=== PATIENT | female | born 1975 | race Caucasian/White ===

== ENCOUNTER 2016-12-11 13:29 | Emergency (ER) | payer MEDICAID ==
[~2016-12-11] VITALS: Ht 162.6 cm; Wt 63.0 kg
[2016-12-11 13:31] VITALS: Ht 162.6 cm; Wt 63.0 kg
[2016-12-11 15:52] LABS: ADD SCAN DIFF NO
[2016-12-11 15:54] LABS: BASOPHIL # 0.1 10^3/ul (0.0-0.1); BASOPHILS % 0.6 % (0.0-2.0); EOSINOPHILS # 0.1 10^3/ul (0.0-0.5); EOSINOPHILS % 0.7 % (0.0-7.0); HEMATOCRIT 38.3 % (37.0-47.0); HEMOGLOBIN 13.2 g/dl (12.0-16.0); LYMPHOCYTES # 2.6 10^3/ul (0.8-2.9); LYMPHOCYTES % 23.1 % (15.0-51.0); MEAN CORPUSCULAR HGB CONC 34.5 g/dl (32.0-37.0); MEAN PLATELET VOLUME 10.9 fl (7.4-10.4); MONOCYTE # 0.9 10^3/ul (0.3-0.9); MONOCYTES % 8.2 % (0.0-11.0); NEUTROPHIL # 7.4 10^3/ul (1.6-7.5); NEUTROPHILS % 67.1 % (39.0-77.0); PLATELET COUNT 350 10^3/UL (140-415); RED BLOOD COUNT 4.12 10^6/ul (4.20-5.40); RED CELL DISTRIBUTION WIDTH 12.7 % (11.5-14.5); WHITE BLOOD COUNT 11.1 10^3/ul (4.8-10.8)
--- NOTE | 2016-12-11 16:21 | RADRPT ---
PROCEDURE: OB Ultrasound. CLINICAL INDICATION: Positive test. Vaginal bleeding. TECHNIQUE: Ultrasound of the pelvis was performed with transabdominal sonography in the axial and sagittal planes. COMPARISON: No prior study is available for comparison. FINDINGS: There is a single intrauterine gestational sac. pole and yolk sac are present. There is heart motion. heart rate is 182 beats per minute. [place]-rump length is 2.36 cm. Mean sac diameter is 5.59 cm. There are 2 small subchorionic hemorrhages. A small posterior fibroid measures 1.6 x 0.9 x 1.7 cm. Menstrual age by ultrasound dates is 9 weeks 0 days. This indicates an expected date of delivery of 07/16/2017. The ovaries are not visualized. There is no other pelvic mass or free fluid. IMPRESSION: 1. Single live intrauterine gestation of 9 weeks 0 days menstrual age by ultrasound dates. 2. Expected date of delivery is 07/16/2017. 3. Small subchorionic hemorrhages. 4. Ovaries not visualized. RPTAT: QQ .Jose Miguel Robbins MD, Date Time Electronically viewed and signed by .Jose Miguel Robbins MD, on 12/11/2016 16:21 .R/
--- NOTE | 2016-12-11 16:42 | ERD ---
ER Documentation Chief Complaint Date/Time DATE: 12/11/16 TIME: 16:36 Chief Complaint vag bleed , 7 weeks preg HPI Patient is a 41 year old female who presents to the emergency department with vaginal bleeding. Patient is a . Patient states that her bleeding started approximately 2 hours ago. Patient reports passage of blood clots. Patient denies using any pads. She does report some mild pelvic cramping. Patient denies any fevers however she does admit to some chills. Patient admits to nausea and vomiting which has been present throughout her . Patient states her last menstrual period was on October 14, 2016. ROS All systems reviewed and are negative except as per history of present illness. Medications Home Meds Active Scripts Cephalexin* (Keflex*) 500 Mg Capsule, 500 MG PO QID for 7 Days, CAP Prov:KATIE POP PA-C 12/11/16 PMhx/Soc Medical and Surgical Hx: pt denies Medical Hx, pt denies Surgical Hx Hx Alcohol Use: No Hx Substance Use: No Hx Tobacco Use: No Smoking Status: Never smoker Physical Exam Vitals Vital Signs Date Time Temp Pulse Resp B/P Pulse Ox O2 Delivery O2 Flow Rate FiO2 12/11/16 13:31 98.2 85 18 120/55 98 Physical Exam GENERAL: Well-developed, well-nourished female. Appears in no acute distress. HEAD: Normocephalic, atraumatic. EYES: Pupils are equally reactive bilaterally. EOMs grossly intact. No conjunctival erythema. ENT: Moist mucous membranes. No uvula deviation. No kissing tonsils. NECK: Supple. No meningismus. Normal range of motion of the neck. LUNG: Clear to auscultation bilaterally. No rhonchi, wheezing, rales or coarse breath sounds. HEART: Regular rate and rhythm. No murmurs, rubs or gallops. ABDOMEN: No scars, ecchymosis or rashes noted. Soft and nondistended. Tender to palpation of the suprapubic region. Positive bowel sounds in all four quadrants. No rebound tenderness, no guarding. (-) McBurney's point tenderness. No CVA tenderness. BACK: No midline tenderness. EXTREMITIES: Equal pulses bilaterally. No peripheral clubbing, cyanosis or edema. No unilateral leg swelling. NEUROLOGIC: Alert and oriented. Moving all four extremities without any difficulty. Normal speech. Steady gait. SKIN: Normal color. Warm and dry. No rashes or lesions. Result Diagram: 12/11/16 1535 Results 24 hrs Laboratory Tests Test 12/11/16 15:35 12/11/16 17:03 White Blood Count 11.110^3/ul Red Blood Count 4.1210^6/ul Hemoglobin 13.2g/dl Hematocrit 38.3% Mean Corpuscular Volume 93.0fl Mean Corpuscular Hemoglobin 32.0pg Mean Corpuscular Hemoglobin Concent 34.5g/dl Red Cell Distribution Width 12.7% Platelet Count 96239^3/UL Mean Platelet Volume 10.9fl Neutrophils % 67.1% Lymphocytes % 23.1% Monocytes % 8.2% Eosinophils % 0.7% Basophils % 0.6% Nucleated Red Blood Cells % 0.0/100WBC Neutrophils # 7.410^3/ul Lymphocytes # 2.610^3/ul Monocytes # 0.910^3/ul Eosinophils # 0.110^3/ul Basophils # 0.110^3/ul Nucleated Red Blood Cells # 0.010^3/ul Beta HCG, Quantitative 780137.0mIU/ml Bedside Urine pH (LAB) 7.0 Bedside Urine Protein (LAB) Negative Bedside Urine Glucose (UA) Negative Bedside Urine Ketones (LAB) Negative Bedside Urine Blood 1+ Bedside Urine Nitrite (LAB) Negative Bedside Urine Leukocyte Esterase (L Trace Procedures/MDM ED COURSE: The patient was stable throughout ED course. I kept the patient and/or family informed of laboratory and diagnostic imaging results throughout the ED course. DIAGNOSTIC IMAGING: Read by radiologist. DIAGNOSTIC IMAGING REPORT Patient: ROSSY HUBBARD : 1975 Age: 41 Sex: F MR #: [id number] [facility] [id number] DOS: 12/11/16 1530 Ordering MD: KATIE POP PA-C Location: [facility] Room/Bed: PROCEDURE: OB Ultrasound. CLINICAL INDICATION: Positive test. Vaginal bleeding. TECHNIQUE: Ultrasound of the pelvis was performed with transabdominal sonography in the axial and sagittal planes. COMPARISON: No prior study is available for comparison. FINDINGS: There is a single intrauterine gestational sac. pole and yolk sac are present. There is heart motion. heart rate is 182 beats per minute. [place]-rump length is 2.36 cm. Mean sac diameter is 5.59 cm. There are 2 small subchorionic hemorrhages. A small posterior fibroid measures 1.6 x 0.9 x 1.7 cm. Menstrual age by ultrasound dates is 9 weeks 0 days. This indicates an expected date of delivery of 07/16/2017. The ovaries are not visualized. There is no other pelvic mass or free fluid. IMPRESSION: 1. Single live intrauterine gestation of 9 weeks 0 days menstrual age by ultrasound dates. 2. Expected date of delivery is 07/16/2017. 3. Small subchorionic hemorrhages. 4. Ovaries not visualized. RPTAT: QQ .Jose Miguel Robbins MD, Date Time Electronically viewed and signed by .Jose Miguel Robbins MD, MD on 12/11/2016 16:21 .R/ CC: KATIE POP PA-C MEDICAL DECISION MAKING: This is a 41-year-old female, , presents to the emergency department with pelvic cramping and vaginal spotting which started 2 hours ago. Vital signs were reviewed. Patient was afebrile. Patient was hemodynamically stable. Urine test was positive. Quantitative b-HCG was 771925. Given that Rh factor was O+, thus Rhogam was not given. CBC showed slight WBC count but no signs of severe anemia. Pelvic US showed Single live intrauterine gestation of 9 weeks 0 days menstrual age by ultrasound dates. Expected date of delivery is 07/16/2017. Small subchorionic hemorrhages. Ovaries not visualized. Urine dip showed trace leukocyte esterase. Given these findings, the patient's presentation is most consistent with single live IUP, subchorionic hematoma and UTI. Unable to rule out threatened at this time. I have a much lower clinical concern for ectopic , ruptured ectopic , molar , incomplete , complete , missed , placental abruption, placental previa, vasa previa, uterine rupture, anembyronic , demise. Low suspicion for pyelonephritis. PRESCRIPTIONS: Keflex DISCHARGE: At this time, patient is stable for discharge and outpatient management. I had a conversation at length with the patient about the concerns of vaginal bleeding during the 1st trimester of . Patient and/or family understands that her vaginal bleeding can be a normal finding or a sign of miscarriage. I have instructed the patient to follow-up with her OBGYN in 1-2 days for further monitoring including a repeat b-HCG level. I have instructed the patient to promptly return to the ER at any time for any new or worsening symptoms including increased pain, nausea, vomiting, continued bleeding, weakness, syncope or fever. The patient and/or family expressed understanding of and agreement with this plan. All questions were answered. Home care instructions were provided. Departure Diagnosis: Primary Impression: Vaginal bleeding in patient at less than 20 weeks ges... Additional Impressions: Subchorionic hematoma Fetus number: single or unspecified fetus Trimester: unspecified trimester Qualified Code: O41.8X90 - Subchorionic hematoma, unspecified trimester, not applicable or unspecified fetus UTI (urinary tract infection) Urinary tract infection type: site unspecified Hematuria presence: without hematuria Qualified Code: N39.0 - Urinary tract infection without hematuria, site unspecified Condition: Stable Patient Instructions: Bleeding During Early Referrals: OFFICE [place] [id number] [facility] [address] [place], [place] [phone] OFFICE FAX DR.ABUSLEME STEPHENIE [address] [place], [place] [phone] [facility] [address] [place], [place] [phone] [facility] [address] [facility] [address] [address] [address] [place] [employer] [phone] [facility] [address] [place] [address] [address] [facility] [id number] - EMILY MANDUJANO [address], [facility] [address] [address] LINDA, LAURA [address] [facility] [address], [facility] [address] [address] [address] [place] [address] Additional Instructions: Call your primary care doctor/OBGYN TOMORROW for an appointment during the next 1-2 days.See the doctor sooner or return here if your condition worsens before your appointment time. KATIE POP PA-C Dec 11, 2016 16:42
[2016-12-11 17:04] LABS: URINE BLOOD (Dip) POC 1+ (NEGATIVE)
[2016-12-11] MEDS ORDERED: CEPH-443 PO (17:22)
== END 2016-12-11 17:35 | disposition home or self-care (01) ==
LOC: FTE 13:29
DX: O20.9 Hemorrhage in early pregnancy, unspecified (principal); O23.41 Unspecified infection of urinary tract in pregnancy, first trimester; R10.2 Pelvic and perineal pain; O41.8X10 Other specified disorders of amniotic fluid and membranes, first trimester, not applicable or unspecified; Z3A.09 9 weeks gestation of pregnancy
CPT/HCPCS: 76801; 81003; 84702; 85025; 86900; 86901

== ENCOUNTER 2017-05-02 11:59 | Outpatient (CLI) | payer MEDICAID ==
[~2017-05-02] VITALS: Ht 157.5 cm; Wt 68.5 kg
[~2017-05-02 11:59] MED LIST: CEPH-443 PO
[2017-05-02 12:43] VITALS: BP 113/60; PULSE 80; RESP 20; Ht 157.5 cm; Wt 68.5 kg
--- NOTE | 2017-05-02 13:46 | RADRPT ---
PROCEDURE: US OB biophysical profile. Ultrasound cervix CLINICAL INDICATION: decreased movements, labor TECHNIQUE: Multiple sonographic images of the pelvis were obtained. In addition, transvaginal imag es of the cervix were obtained. The images were reviewed on a PACS workstation. COMPARISON: No prior studies are available for comparison. FINDINGS: There is a single viable intrauterine gestation. Cardiac activity is present with 132 beats per min kiesha. There is a vertex presentation. The cervix is closed and measures 3.8 cm in length. The placenta is posterior. There is no evidence of placental abruption. There is a normal amount of amniotic fluid with an SARA = 19.1 cm. Biophysical profile: movement 2/2 tone 2/2. breathing 2/2 SARA 2/2 Total 04/17 RPTAT: AA . IMPRESSION: Normal biophysical profile. . .Joshua Lynn MD, Date Time Electronically viewed and signed by .Joshua Lynn MD, on 05/02/2017 13:45 .S/
--- NOTE | 2017-05-02 14:05 | RADRPT ---
PROCEDURE: Obstetrical ultrasound CLINICAL INDICATION: Labor TECHNIQUE: Multiple sonographic images of the pelvis were obtained. The images were reviewed on a PACS workstation. COMPARISON: None FINDINGS: The cervix is not well visualized. There is a single viable intrauterine gestation. Cardiac activity is present with 128 beats per minute. There is a vertex presentation. The placenta is posterior. There is no evidence for an abruption or placenta previa. There is a subjectively normal amount of amniotic fluid. Measurements were made in order to determine age. The results are as follows (cm): BPD =7.13 HC =26.52 AC =24.38 FL =5.40 Estimated gestational age by ultrasound of approximately 28 weeks, 5 days. The estimated date of delivery by ultrasound is 07/20/2017. Estimated gestational age by LMP of approximately 28 weeks, 3 days. The estimated date of delivery by LMP is 07/22/2017. EFW = 1261 grams (45th percentile) IMPRESSION: Single viable intrauterine gestation of approximately 28 weeks, 5 days . The estimated date of delivery is 07/20/2017 . Dating by ultrasound is within 2 days of dating by LMP. Cephalic presentation. Estimated weight is in the 45th percentile. RPTAT: EE Physician Patrick Date Time Electronically viewed and signed by Physician Patrick on 05/02/2017 14:05 SARIAH
[2017-05-02 14:20] LABS: ADD UMIC NO; UR ASCORBIC ACID NEGATIVE (NEGATIVE); UR BILIRUBIN (Dip) NEGATIVE (NEGATIVE); UR BLOOD (Dip) NEGATIVE (NEGATIVE); UR CLARITY CLEAR (CLEAR); UR COLOR STRAW (YELLOW); UR GLUCOSE (Dip) NEGATIVE (NEGATIVE); UR KETONES (Dip) NEGATIVE (NEGATIVE); UR LEUKOCYTE ESTERASE (Dip) NEGATIVE Leu/ul (NEGATIVE); UR NITRITE (Dip) NEGATIVE (NEGATIVE); UR SPECIFIC GRAVITY (Dip) 1.004 (1.003-1.030); UR TOTAL PROTEIN (Dip) NEGATIVE (NEGATIVE); UR UROBILINOGEN (Dip) NEGATIVE (NEGATIVE)
[2017-05-02] MEDS ORDERED: LACTATED RINGER'S 1,000 ML IV SCH (15:02)
[2017-05-02] MEDS ORDERED: TERBUTALINE 1 MG/ML INJ SC ONE (17:30)
[2017-05-03] MEDS ORDERED: IOHEXOL 300MG/ML 150 ML BTL ONE (02:43)
[2017-05-03] MEDS ORDERED: SOD CHLORIDE 0.9% 100 ML ONE (02:43)
--- NOTE | 2017-05-03 07:40 | TRIAGE ---
OB Triage Datetime Report Generated by CPN: 05/03/2017 07:39 Datetime: 05/02/2017 20:00 Stage of : OB Triage Heart Rate FHR Baseline Rate: 140 Monitor Mode: External US FHR Baseline Changes: No Baseline Change Variability: Moderate 6-25 bpm Accelerations: 15X15 Decelerations: None Category: Category I Pain Assessment Pain Scale: 0 Pain Presence: None/Denies Pain Type: N/A Datetime: 05/02/2017 19:25 Stage of : OB Triage Monitor Mode: External Quality: Mild Pattern: Normal: <= 5 Contractions in 10 Minutes Resting Tone [place]: Relaxed Contraction Comments: PT DENIES UCS OR DISCOMFORT Heart Rate FHR Baseline Rate: 140 Monitor Mode: External US FHR Baseline Changes: No Baseline Change Variability: Moderate 6-25 bpm Accelerations: 15X15 Decelerations: None Category: Category I Vaginal Exam Dilatation (cms): 0.0 Effacement (%): 0 Station: -4 Exam By: SHAGGY RN Vaginal Bleeding: None Cervix, Consistency: Firm Cervix, Position: Posterior Datetime: 05/02/2017 19:00 Stage of : OB Triage Maternal Assessment Level of Consciousness: Fully Conscious Labor Evaluation Frequency: NONE Monitor Mode: External Resting Tone [place]: Relaxed Heart Rate FHR Baseline Rate: 135 Monitor Mode: External US Variability: Moderate 6-25 bpm Accelerations: 15X15 Decelerations: None Pain Assessment Pain Scale: 0 Pain Goal: 3 Membrane Status: Intact Vaginal Bleeding: None Datetime: 05/02/2017 18:00 Stage of : OB Triage Maternal Assessment Level of Consciousness: Fully Conscious Labor Evaluation Frequency: 2-20 Monitor Mode: External Duration (sec)2399: 60-90 Quality: Mild Resting Tone [place]: Relaxed Heart Rate FHR Baseline Rate: 135 Monitor Mode: External US Variability: Moderate 6-25 bpm Accelerations: 15X15 Decelerations: None Category: Category I Pain Assessment Pain Scale: 0 Pain Goal: 3 Membrane Status: Intact Vaginal Bleeding: None Datetime: 05/02/2017 17:00 Stage of : OB Triage Maternal Assessment Level of Consciousness: Fully Conscious Labor Evaluation Frequency: 1-6 Monitor Mode: External Duration (sec)2399: 50-100 Quality: Mild Resting Tone [place]: Relaxed Heart Rate FHR Baseline Rate: 135 Monitor Mode: External US Variability: Moderate 6-25 bpm Accelerations: 15X15 Decelerations: None Category: Category I Pain Assessment Pain Scale: 0 Pain Goal: 3 Membrane Status: Intact Vaginal Bleeding: None Datetime: 05/02/2017 16:00 Stage of : OB Triage Maternal Assessment Level of Consciousness: Fully Conscious Labor Evaluation Frequency: NONE Monitor Mode: External Resting Tone [place]: Relaxed Heart Rate FHR Baseline Rate: 135 Monitor Mode: External US Variability: Moderate 6-25 bpm Accelerations: 15X15 Decelerations: None Pain Assessment Pain Scale: 0 Pain Goal: 3 Membrane Status: Intact Vaginal Bleeding: None Datetime: 05/02/2017 15:00 Stage of : OB Triage Maternal Assessment Level of Consciousness: Fully Conscious Labor Evaluation Frequency: 2UC/HR Monitor Mode: External Duration (sec)2399: 70 Quality: Mild Resting Tone [place]: Relaxed Heart Rate FHR Baseline Rate: 135 Monitor Mode: External US Variability: Moderate 6-25 bpm Accelerations: 15X15 Decelerations: None Category: Category I Pain Assessment Pain Scale: 0 Pain Goal: 3 Membrane Status: Intact Vaginal Bleeding: None Datetime: 05/02/2017 14:04 Labor Evaluation Frequency: UTERINE IRRITABILITY Monitor Mode: External Pattern: Normal: <= 5 Contractions in 10 Minutes Resting Tone [place]: Relaxed Heart Rate FHR Baseline Rate: 135 Monitor Mode: External US Variability: Moderate 6-25 bpm Accelerations: 15X15 Decelerations: None Category: Category I Datetime: 05/02/2017 13:03 Stage of : OB Triage Assessment Type: Triage Maternal Assessment Level of Consciousness: Fully Conscious DTR's/Clonus: DTRs 2+; No Clonus Headache: Denies Blurred Vision: No Respiratory Effort: Unlabored; Regular Rhythm; Equal Expansion Breath Sounds, Left: Clear and Equal Breath Sounds, Right: Clear and Equal Nausea/Vomiting: Denies RUQ Epigastric Pain: Denies Lower Extremities Edema: None Degree: None Upper Extremities Edema: None Degree: None Facial Edema: None Temperature Route: Axillary Fall Risk Assessment History of Falling: (0) No Secondary Diagnosis: (0) No Ambulatory Aid: (0) Bedrest/Nurse Assist IV Therapy: (0) No Gait: (0) Normal/Bedrest/Immobile Mental Status: (0) Oriented to Own Ability Fall Score: 0 Fall Risk Score Definition: No Risk: No action required Pain Assessment Pain Scale: 7 Pain Presence: Intermittent Pain Type: Contraction Pain Location: Abdomen Pain Goal: 2 Pain Relief Measures: Comfort Measures Datetime: 05/02/2017 13:02 Assessment Type: Triage Maternal Assessment Level of Consciousness: Fully Conscious DTR's/Clonus: DTRs 2+; No Clonus Headache: Denies Blurred Vision: No Respiratory Effort: Unlabored; Regular Rhythm; Equal Expansion Breath Sounds, Left: Clear and Equal Breath Sounds, Right: Clear and Equal Nausea/Vomiting: Denies RUQ Epigastric Pain: Denies Lower Extremities Edema: None Degree: None Upper Extremities Edema: None Degree: None Facial Edema: None Fall Risk Assessment History of Falling: (0) No Secondary Diagnosis: (0) No Ambulatory Aid: (0) Bedrest/Nurse Assist IV Therapy: (0) No Gait: (0) Normal/Bedrest/Immobile Mental Status: (0) Oriented to Own Ability Fall Score: 0 Fall Risk Score Definition: No Risk: No action required Datetime: 05/02/2017 12:33 Time of Arrival: 05/02/2017 11:55 EGA: 28.3 Arrived By: Ambulatory Arrived From: Home Chief Complaint: VAGINAL PAIN AND LEAKING Movement: Present Contractions: Denies/Absent Rupture of Membranes: Unsure Vaginal Bleeding: None Vaginal Discharge: Denies Recent Sexual Intercouse: Denies Patient Complaints: Back Pain Time Provider Notified: 05/02/2017 12:34 Provider Notified: JOEDAPJ Initial Plan: nst and call md Datetime: 05/02/2017 12:32 Time of Arrival: 05/02/2017 11:29 Arrived By: Ambulatory Arrived From: Home Chief Complaint: VAGINAL PAIN 03/19/ LEAKING
--- NOTE | 2017-07-25 12:17 | PN ---
Triage Information Date/Time Reason for visit: Abd/pelvic pain (LOF) Weeks of Gestation 28 weeks and 3 days /Para Diabetes: none Hypertention: none Additional information 42 years old Female with IUP at 28 weeks and [address] and care with Dr[address] Hernandes presented with complaint of low back pain and LOF. Denies any vaginal bleeding. DFM or any other complaint Objective Heart Rate: 130's Contractions: 6-10 Minutes Apart Exam GA:A&O, NAD Abdomen. soft, gravid., non tender FH consistent with date NST: Cat 1 Occasional contractins,. resolved with hydration SSE: Negative pooling, Negative [place]. Negative ROM. Results/Medications Imaging Results PROCEDURE: US OB biophysical profile. Ultrasound cervix CLINICAL INDICATION: decreased movements, labor TECHNIQUE: Multiple sonographic images of the pelvis were obtained. In addition, transvaginal images of the cervix were obtained. The images were reviewed on a PACS workstation. COMPARISON: No prior studies are available for comparison. FINDINGS: There is a single viable intrauterine gestation. Cardiac activity is present with 132 beats per minute. There is a vertex presentation. The cervix is closed and measures 3.8 cm in length. The placenta is posterior. There is no evidence of placental abruption. There is a normal amount of amniotic fluid with an SARA = 19.1 cm. Biophysical profile: movement 2/2 tone 2/2. breathing 2/2 SARA 2/2 Total 8/8 RPTAT: AA . IMPRESSION: Normal biophysical profile. . Disposition: Discharge Assessment/Plan IUP at 28 weeks and 3 days No Evidence of PPROM or PTL ROM test negative AF normal OCcasional contractions resolved with IV hdration DC home Strict PTL precaution and FKC discussed with the patient follow up in 24-48 hours with her OB and RT Crystal PRN any other concerns' SHELLEY TERRY MD Jul 25, 2017 12:17
== END 2017-05-02 20:24 | disposition home or self-care (01) ==
LOC: L-D 11:59 → OBT 11:59
PROVIDERS: ATTEND Obstetrics & Gynecology
DX: O42.912 Preterm premature rupture of membranes, unspecified as to length of time between rupture and onset of labor, second trimester (principal); O09.512 Supervision of elderly primigravida, second trimester; Z3A.28 28 weeks gestation of pregnancy
CPT/HCPCS: 76815; 76817; 76818; 81003; 84112; J3105; J7120; Z7500; G0463; Q9967

== ENCOUNTER 2017-05-24 21:38 | Outpatient (CLI) | payer MEDICAID ==
--- NOTE | 2017-05-03 04:59 | PN ---
Triage Information Date/Time May 02, 2017 Reason for visit: r/o SROM Weeks of Gestation 28 weeks and 3 days /Para 2 para Diabetes: none Hypertention: none Additional information 41-year-old with IUP at 28 weeks and 3 days with complaint of vaginal pain and leaking of fluid. Denies any vaginal bleeding or decreased movement or uterine contractions. Objective Heart Rate: 130's Heart Rate Comments Category 1 tracing Exam GA: Alert and oriented 3 does not appear to be in any acute distress. Abdomen: Soft, gravid, fundal height consistent with gestational age. No abdominal tenderness, no suprapubic tenderness, no CVA tenderness. Sterile speculum examination: Negative pooling/R OM test negative SARA normal BPP: 8/8 Cervical length: 3.8 cm. Estimated weight 45% Placenta in ultrasound with no evidence of abruption or previa Results/Medications Imaging Results PROCEDURE: Obstetrical ultrasound CLINICAL INDICATION: Labor TECHNIQUE: Multiple sonographic images of the pelvis were obtained. The images were reviewed on a PACS workstation. COMPARISON: None FINDINGS: The cervix is not well visualized. There is a single viable intrauterine gestation. Cardiac activity is present with 128 beats per minute. There is a vertex presentation. The placenta is posterior. There is no evidence for an abruption or placenta previa. There is a subjectively normal amount of amniotic fluid. Measurements were made in order to determine age. The results are as follows (cm): BPD = 7.13 HC = 26.52 AC = 24.38 FL = 5.40 Estimated gestational age by ultrasound of approximately 28 weeks, 5 days. The estimated date of delivery by ultrasound is 07/20/2017. Estimated gestational age by LMP of approximately 28 weeks, 3 days. The estimated date of delivery by LMP is 07/22/2017. EFW = 1261 grams (45th percentile) IMPRESSION: Single viable intrauterine gestation of approximately 28 weeks, 5 days . The estimated date of delivery is 07/20/2017 . Dating by ultrasound is within 2 days of dating by LMP. Cephalic presentation. Estimated weight is in the 45th percentile. Disposition: Discharge Assessment/Plan IUP at 28 weeks and 3 days No evidence of PPROM No evidence of labor DC home Strict labor precaution and kick count and follow-up within 24-48 hours with primary OB recommended. SHELLEY TERRY MD May 03, 2017 04:59
[~2017-05-24] VITALS: Ht 157.5 cm; Wt 71.7 kg
[2017-05-24 22:14] VITALS: BP 116/64; PULSE 83; RESP 18
[2017-05-24] MEDS ORDERED: PRENAT PO (22:47)
[2017-05-24 23:06] LABS: ADD UMIC NO; UR ASCORBIC ACID NEGATIVE (NEGATIVE); UR BILIRUBIN (Dip) NEGATIVE (NEGATIVE); UR BLOOD (Dip) NEGATIVE (NEGATIVE); UR CLARITY CLEAR (CLEAR); UR COLOR COLORLESS (YELLOW); UR GLUCOSE (Dip) NEGATIVE (NEGATIVE); UR KETONES (Dip) NEGATIVE (NEGATIVE); UR LEUKOCYTE ESTERASE (Dip) NEGATIVE Leu/ul (NEGATIVE); UR NITRITE (Dip) NEGATIVE (NEGATIVE); UR SPECIFIC GRAVITY (Dip) 1.001 (1.003-1.030); UR TOTAL PROTEIN (Dip) NEGATIVE (NEGATIVE); UR UROBILINOGEN (Dip) NEGATIVE (NEGATIVE)
[2017-05-24] MEDS ORDERED: BETAMET NA PHOS/AC(6 MG/ML) 5ML INJ ONE (23:33)
--- NOTE | 2017-05-24 23:57 | RADRPT ---
PROCEDURE: OB ultrasound for biophysical profile CLINICAL INDICATION: labor. TECHNIQUE: Multiple sonographic images of the pelvis were obtained. Transabdominal view of the gr avid uterus are available for review. The images were reviewed on a PACS workstation. COMPARISON: 05/02/2017 FINDINGS: breathing movement = 2/2 tone = 2/2 motion = 2/2 Amniotic fluid = 2/2 SARA = 19.9 cm Single live intrauterine in cephalic presentation with cardiac activity (139 bpm). Posterior placenta, grade 1. The cervix is closed measuring 3.9 cm. There is 8 mm Nabothian cyst in the cervix IMPRESSION: 1. Single viable intrauterine gestation. 2. Biophysical profile = 04/17. 3. SARA = 19.9 cm. RPTAT: HTAR .Vineet Hall MD, MD Date Time Electronically viewed and signed by .Vineet Hall MD, MD on 05/24/2017 23:57 .R/
--- NOTE | 2017-05-24 23:58 | RADRPT ---
PROCEDURE: US OB. CLINICAL INDICATION: labor. TECHNIQUE: Multiple sonographic images of the pelvis were obtained. Transabdominal imaging only w as performed. The images were reviewed on a PACS workstation. COMPARISON: No prior studies are available for comparison. FINDINGS: There is a single viable intrauterine gestation. Cardiac activity is present with 139 beats per minute. There is a cephalic presentation. Measurements were made in order to determine age. The results are as follows: BPD = 8.20 cm HC = 29.72 cm AC = 29.46 cm FL = 6.04 cm Estimated gestational age of approximately 32 weeks 5 days. The estimated date of delivery is 07/14/2017. The EFW = 2044 g. EFW percentile: 50% The placenta is posterior, grade 1. There is no evidence for an abruption or placenta previa. IMPRESSION: 1. Single viable intrauterine gestation of approximately 32 weeks 5 days, based on ultrasound measu rements. The estimated date of delivery is 07/14/2017. 2. EFW percentile: 50%. RPTAT: HTAR .Vineet Hall MD, Date Time Electronically viewed and signed by .Vineet Hall MD, MD on 05/24/2017 23:58 .R/
[2017-05-25 00:47] LABS: BASOPHIL # 0.1 10^3/ul (0.0-0.1); BASOPHILS % 0.5 % (0.0-2.0); EOSINOPHILS # 0.2 10^3/ul (0.0-0.5); EOSINOPHILS % 1.5 % (0.0-7.0); HEMATOCRIT 34.3 % (37.0-47.0); LYMPHOCYTES # 1.9 10^3/ul (0.8-2.9); LYMPHOCYTES % 16.8 % (15.0-51.0); MEAN CORPUSCULAR HEMOGLOBIN 34.6 pg (29.0-33.0); MEAN CORPUSCULAR VOLUME 98.8 fl (82.0-101.0); MEAN PLATELET VOLUME 11.2 fl (7.4-10.4); MONOCYTE # 1.2 10^3/ul (0.3-0.9); MONOCYTES % 10.7 % (0.0-11.0); NEUTROPHIL # 7.6 10^3/ul (1.6-7.5); NEUTROPHILS % 68.6 % (39.0-77.0); PLATELET COUNT 265 10^3/UL (140-415); RED BLOOD COUNT 3.47 10^6/ul (4.20-5.40); RED CELL DISTRIBUTION WIDTH 12.7 % (11.5-14.5); WHITE BLOOD COUNT 11.1 10^3/ul (4.8-10.8)
--- NOTE | 2017-05-25 03:28 | PN ---
Triage Information Date/Time 05/25/17 0240 Reason for visit: DFM Weeks of Gestation 31w4d /Para Diabetes: none Diabetes management: insulin controlled Hypertention: none Objective Vital Signs Date Time Temp Pulse Resp B/P Pulse Ox O2 Delivery O2 Flow Rate FiO2 05/24/17 22:14 98.1 83 18 116/64 Room Air Heart Rate: 130's Contractions: None Results/Medications Result Diagram: 05/25/17 0028 Results 24 hrs Laboratory Tests Test 05/24/17 21:45 05/25/17 00:28 Urine Color COLORLESS Urine Clarity CLEAR Urine pH 6.0 Urine Specific [place] 1.001 L Urine Ketones NEGATIVE Urine Nitrite NEGATIVE Urine Bilirubin NEGATIVE Urine Urobilinogen NEGATIVE Urine Leukocyte Esterase NEGATIVE Urine Hemoglobin NEGATIVE Urine Glucose NEGATIVE Urine Total Protein NEGATIVE White Blood Count 11.1 H Red Blood Count 3.47 L Hemoglobin 12.0 Hematocrit 34.3 L Mean Corpuscular Volume 98.8 Mean Corpuscular Hemoglobin 34.6 H Mean Corpuscular Hemoglobin Concent 35.0 Red Cell Distribution Width 12.7 Platelet Count 265 # Mean Platelet Volume 11.2 H Neutrophils % 68.6 Lymphocytes % 16.8 Monocytes % 10.7 Eosinophils % 1.5 Basophils % 0.5 Nucleated Red Blood Cells % 0.0 Neutrophils # 7.6 H Lymphocytes # 1.9 Monocytes # 1.2 H Eosinophils # 0.2 Basophils # 0.1 Nucleated Red Blood Cells # 0.0 Imaging Results CVL 3.9 BPP 8/8 SARA 19.9 EFW 2044gm Disposition: Discharge Assessment/Plan A IUP 31w4d DFM P discharge home f/u at [facility] RT NAVDEEP Jackson MD May 25, 2017 03:28
--- NOTE | 2017-05-25 05:27 | TRIAGE ---
OB Triage Datetime Report Generated by CPN: 05/25/2017 05:27 Datetime: 05/24/2017 23:14 Monitor Mode: External US Datetime: 05/24/2017 22:10 Stage of : OB Triage Monitor Mode: External Quality: Mild Pattern: Normal: <= 5 Contractions in 10 Minutes Resting Tone [place]: Relaxed Heart Rate FHR Baseline Rate: 140 Monitor Mode: External US FHR Baseline Changes: No Baseline Change Variability: Moderate 6-25 bpm Accelerations: 15X15 Decelerations: None Category: Category I Datetime: 05/24/2017 22:00 Time of Arrival: 05/24/2017 21:32 EGA: 31.4 Arrived By: Wheelchair Arrived From: Home Chief Complaint: c/o DFM since am and occas mild cramping Movement: Decreased Contractions: Occasional Rupture of Membranes: Denies Vaginal Bleeding: None Vaginal Discharge: Denies Recent Sexual Intercouse: Denies Abdominal Trauma: Not Applicable Patient Complaints: Cramping Time Provider Notified: 05/24/2017 22:10 Provider Notified: Dr Hernandes Initial Plan: EFM,CBC,UA,CVL,EFW,BPP Datetime: 05/24/2017 21:46 Stage of : OB Triage Maternal Assessment Level of Consciousness: Fully Conscious Headache: Denies Blurred Vision: No Respiratory Effort: Unlabored Nausea/Vomiting: Denies RUQ Epigastric Pain: Denies Facial Edema: None Labor Evaluation Frequency: placed Monitor Mode: External Resting Tone [place]: Relaxed Heart Rate FHR Baseline Rate: 135 Monitor Mode: External US Pain Assessment Pain Scale: 2 Pain Presence: Intermittent Pain Type: Cramping Pain Location: Abdomen Datetime: 05/02/2017 13:03 Fall Risk Assessment Fall Score: 0 Fall Risk Score Definition: No Risk: No action required Datetime: 05/02/2017 13:02 Fall Risk Assessment Fall Score: 0 Fall Risk Score Definition: No Risk: No action required Datetime: 05/02/2017 12:33 EGA: 28.3
== END 2017-05-25 01:20 | disposition home or self-care (01) ==
LOC: OBT 21:38 → L-D 21:39 → OBT 05-25 01:20
PROVIDERS: ATTEND Obstetrics & Gynecology
DX: O36.8130 Decreased fetal movements, third trimester, not applicable or unspecified (principal); O24.414 Gestational diabetes mellitus in pregnancy, insulin controlled; Z3A.31 31 weeks gestation of pregnancy
CPT/HCPCS: 36415; 76815; 76817; 76818; 81003; 85025; J0702; Z7500; G0463

== ENCOUNTER 2017-07-13 16:58 | Inpatient (IN) | payer MEDICAID ==
[~2017-07-13] VITALS: Ht 152.4 cm; Wt 76.0 kg
[~2017-07-13 16:58] MED LIST changes: -CEPH-443 PO; +PRENAT PO
[2017-07-13] MEDS ORDERED: LACTATED RINGER'S 1,000 ML IV SCH (18:27)
[2017-07-13] MEDS ORDERED: HYDROCODONE/APAP (5/325) TAB PO PRN (18:30)
[2017-07-13] MEDS ORDERED: BUTORPHANOL 2 MG INJ IV PRN ×2 (18:30)
[2017-07-13] MEDS ORDERED: OXYTOCIN 30 UNITS/LR 500 ML IV PRN ×2 (18:30→20:30)
[2017-07-13] MEDS ORDERED: LIDOCAINE 1% (MPF) 30 ML INJ INJ PRN (18:30)
[2017-07-13] MEDS ORDERED: IBUPROFEN 600 MG TAB PO PRN (18:30)
[2017-07-13] MEDS ORDERED: LACTATED RINGER'S 1,000 ML IV PRN (18:30)
[2017-07-13] MEDS ORDERED: METHYLERGONOVINE 0.2 MG INJ IM PRN ×2 (18:30→20:30)
[2017-07-13] MEDS ORDERED: OXYTOCIN 30 UNITS/LR 500 ML IV SCH ×2 (18:30)
[2017-07-13] MEDS ORDERED: MISOPROSTOL 200 MCG TAB PR PRN ×2 (18:30→20:30)
[2017-07-13] MEDS ORDERED: CARBOPROST 250 MCG INJ IM PRN ×2 (18:30→20:30)
[2017-07-13] MEDS ORDERED: AMPICILLIN 2 GM/NS (PMX) 100 ML IV ONE (18:30)
[2017-07-13 19:04] VITALS: Ht 152.4 cm; Wt 76.0 kg
[2017-07-13 19:05] VITALS: BP 121/68; PULSE 71; RESP 20
[2017-07-13] MEDS ORDERED: LACTATED RINGER'S 1,000 ML IV* SCH (20:08)
--- NOTE | 2017-07-13 20:08 | LDN ---
Date/Time of Note Date/Time of Note DATE: 07/13/17 TIME: 20:07 Delivery Summary Weeks of Gestation 38 Placenta Delivered: Spontaneously Meconium: none Laceration repair: 1st degree vaginal laceration repair with 2-0 chromic Estimated blood loss: 150 Sponge & Needle done & correct: Yes All needle counts correct: Yes Any foreign bodies felt in the: No Problems: Delivery Information Sex Sex: male Apgars 1 Minute: 8 5 Minute: 9 Suctioning Nose & mouth suctioned at barrera: No Delee suction performed: No Umbilical Cord Umbilical cord with: 3 Vessels Cord presentations: no nuchal cord Cord Blood was obtained: Yes KAREN SMITH MD Jul 13, 2017 20:08
[2017-07-13] MEDS ORDERED: DIBUCAINE 1% 30 GM OINT PR PRN (20:30)
[2017-07-13] MEDS ORDERED: WITCH HAZEL/GLYCERIN PAD PR PRN (20:30)
[2017-07-13] MEDS ORDERED: LANOLIN 7 GM TUBE TOP PRN (20:30)
[2017-07-13] MEDS ORDERED: ONDANSETRON 4 MG INJ IV PRN (20:30)
[2017-07-13] MEDS ORDERED: OXYCODONE/ASPIRIN (4.88/325) TAB PO PRN ×2 (20:30)
[2017-07-13] MEDS ORDERED: SENNA/DOCUSATE NA (8.6MG/50MG) TAB PO PRN (20:30)
[2017-07-13] MEDS ORDERED: BENZOCAINE 20% 56 ML SPRAY TOP PRN (20:30)
--- NOTE | 2017-07-13 20:30 | RADRPT ---
PROCEDURE: Obstetrical ultrasound. CLINICAL INDICATION: , evaluation. Pelvic pain. TECHNIQUE: Transabdominal sonographic images of the uterus obtained after first trimester , greater than 14 weeks gestation. Single intrauterine gestation present. COMPARISON: 05/24/2017 FINDINGS: Single intrauterine gestation. There is a cephalic presentation. Measurements were made in order to determine age. The results are as follows: BPD = 34 weeks 6 day(s) HC = 35 weeks 6 day(s) AC = 38 weeks 3 day(s) FL = 36 weeks 6 day(s) SARA = not measured. Heart rate = 146 beats per minute The placenta is fundal - right. There is no evidence for an abruption or placenta previa. Ovaries are not visualized. IMPRESSION: Single intrauterine gestation of approximately 36 weeks 4 days by ultrasound criteria. [place] estimated weight = 3175 g; 31 percentile for gestational age of 38 weeks 5 days. RPTAT: AADD .Drake Cordero MD, MD Date Time Electronically viewed and signed by .Drake Cordero MD, on 07/13/2017 20:30 .B/
[2017-07-13] MEDS: SENNA/DOCUSATE NA (8.6MG/50MG) TAB PO SCH (21:00)
[2017-07-13] MEDS ORDERED: AMPICILLIN 1 GM/NS (PMX) 50 ML IV SCH (22:30)
[2017-07-13 22:50] VITALS: BP 100/57; PULSE 73; RESP 19
[2017-07-14] VITALS: BP 102/66; PULSE 78; RESP 18
[2017-07-14] MEDS: IBUPROFEN 600 MG TAB PO SCH ×4 (00:09→17:59)
[2017-07-14 00:10] VITALS: BP 104/56; PULSE 73; RESP 17
[2017-07-14] MEDS: LACTATED RINGER'S 1,000 ML IV SCH ×3 (01:00→17:00)
[2017-07-14 04:00] VITALS: BP 99/57; PULSE 70; RESP 18
--- NOTE | 2017-07-14 05:50 | PREOPHP ---
DATE OF ADMISSION: 07/13/2017 HISTORY OF PRESENT ILLNESS: Ms. Nydia Denise is a 42-year-old 2, para 1, intrauterine pregnanc y at 38 weeks and 5 days gestational age, presented to triage in labor. She complains of contractio ns since early this morning. She denies any vaginal bleeding or discharge. Her care took place at [facility]. MEDICAL HISTORY: None. MEDICATIONS: vitamins. PAST SURGICAL HISTORY: None. OBSTETRICAL HISTORY: Times 1 vaginal delivery 15 years ago. GYNECOLOGIC HISTORY: 13, regular 3 to 4 days. Denies any sexually transmitted diseases. Sexually active with 1 partner. SOCIAL HISTORY: Denies any smoking, drugs or alcohol. FAMILY HISTORY: None. REVIEW OF SYSTEMS: All within normal except history of present illness. PHYSICAL EXAMINATION: HEENT: Within normal. LUNGS: CTA bilateral. CARDIOVASCULAR: S1, S2, regular rhythm. ABDOMEN: Gravid, nontender. Negative CVA bilaterally. EXTREMITIES: Negative edema. No calf tenderness. PELVIC: Vaginal exam fully dilated, 100% effaced, at +1 station with spontaneous rupture of membran e. ASSESSMENT: Intrauterine at term, advanced maternal age in labor. PLAN: Expected vaginal delivery. Dictated By: KAREN TAY/SADE Conf#: [id number] DID#: [id number]
[2017-07-14 08:30] VITALS: BP 122/56; PULSE 81; RESP 18
[2017-07-14] MEDS: SENNA/DOCUSATE NA (8.6MG/50MG) TAB PO SCH ×2 (09:00→21:49)
[2017-07-14 16:00] VITALS: BP 116/72; PULSE 67; RESP 18
--- NOTE | 2017-07-14 18:41 | PD.PPDC ---
CASTING ROOM OPERATOR Discharge Instruction Condition Patient Condition: Fair Diet Diet: Resume Regular Diet Activity/Restrictions Activity: Normal Activity May Shower Restrictions: No Exercising No Lifting No Driving No Sexual Activity Nothing in the Vagina No [place] No Tampons, douche Follow-up Follow-up with Physician: 3, Week/Weeks Return to clinic for DIRECTOR GLOBAL DEVELOPMENT Instructions: Fever greater than 101 Chills Worsening abdominal pain Excessive Vaginal Bleeding More than 2 pads per hour Unable to tolerate diet OB Instructions: Breast Tenderness Depression Blurried Vision Headache Surgical Instructions: Incisional Drainage Incisional Redness KAREN SMITH MD Jul 14, 2017 18:41
--- NOTE | 2017-07-14 18:41 | PD.PPDC ---
LOCAL SALES MANAGER Discharge Instruction Condition Patient Condition: Fair Diet Diet: Resume Regular Diet Activity/Restrictions Activity: Normal Activity May Shower Restrictions: No Exercising No Lifting No Driving No Sexual Activity Nothing in the Vagina No [place] No Tampons, douche Follow-up Follow-up with Physician: 3, Week/Weeks Return to clinic for SUPPLIER ENGINEER Instructions: Fever greater than 101 Chills Worsening abdominal pain Excessive Vaginal Bleeding More than 2 pads per hour Unable to tolerate diet OB Instructions: Breast Tenderness Depression Blurried Vision Headache Surgical Instructions: Incisional Drainage Incisional Redness KAREN SMITH MD Jul 14, 2017 18:41
--- NOTE | 2017-07-14 18:41 | PD.PPDC ---
PAIN MEDICINE PHYSICIAN Discharge Instruction Condition Patient Condition: Fair Diet Diet: Resume Regular Diet Activity/Restrictions Activity: Normal Activity May Shower Restrictions: No Exercising No Lifting No Driving No Sexual Activity Nothing in the Vagina No [place] No Tampons, douche Follow-up Follow-up with Physician: 3, Week/Weeks Return to clinic for CORE ANALYSIS OPERATOR Instructions: Fever greater than 101 [place] Worsening abdominal pain Excessive Vaginal Bleeding More than 2 pads per hour Unable to tolerate diet OB Instructions: Breast Tenderness Depression Blurried Vision Headache Surgical Instructions: Incisional Drainage Incisional Redness KAREN SMITH MD Jul 14, 2017 18:41
--- NOTE | 2017-07-14 18:44 | DS ---
Date/Time of Note Date/Time of Note DATE: 07/14/17 TIME: 18:43 Obstetrical Discharge Record Final Diagnosis Final Diagnosis: Term delivered Other Final Diagnosis iup at term in labor Vaginal Delivery Obstetrical Delivery: Spontaneous Condition on Discharge Physical Assessment Last Vitals: stable afebrile Voiding: Yes Bowel Movement: Yes Breast: Soft, non-tender, Filling Fundus: Firm Abdomen and Incision: soft nt no distention Calf Tenderness: No Patient Condition: Fair KAREN SMITH MD Jul 14, 2017 18:44
[2017-07-14 19:40] VITALS: BP 117/58; PULSE 77; RESP 19
[2017-07-15] MEDS: IBUPROFEN 600 MG TAB PO SCH ×3 (00:36→11:19)
[2017-07-15] MEDS: LACTATED RINGER'S 1,000 ML IV SCH (01:00)
[2017-07-15 04:00] VITALS: BP 111/56; PULSE 69; RESP 17
[2017-07-15 08:30] VITALS: BP 97/64; PULSE 68; RESP 18
[2017-07-15] MEDS: SENNA/DOCUSATE NA (8.6MG/50MG) TAB PO SCH (09:00)
[2017-07-15] MEDS ORDERED: INFLUENZA VIRUS VACCINE 0.5 ML (DISPENSING) IM* ONE (09:00)
== END 2017-07-15 12:40 | disposition home or self-care (01) | DRG 775 ==
LOC: OBT 16:58 → L-D 16:59 → OBT 17:33 → L-D 18:37 → PP1 22:35
PROVIDERS: ADMIT Obstetrics & Gynecology; ATTEND Obstetrics & Gynecology
PROC: 10E0XZZ Delivery of Products of Conception, External Approach (ICD-10-PCS; principal; 2017-07-13)
PROC: 0UQGXZZ Repair Vagina, External Approach (ICD-10-PCS; 2017-07-13)
DX: O71.4 Obstetric high vaginal laceration alone (principal); Z37.0 Single live birth; Z3A.38 38 weeks gestation of pregnancy
CPT/HCPCS: 76815; 85025; 85048; 85610; 85730; 86592; 86900; 86901; 87340; 90686; G0463; J0290; J2590; J7120

== ENCOUNTER 2017-07-24 11:44 | Emergency (ER) | payer MEDICAID ==
[~2017-07-24] VITALS: Ht 165.1 cm; Wt 70.0 kg
[2017-07-24 11:49] VITALS: Ht 165.1 cm; Wt 70.0 kg
--- NOTE | 2017-07-24 12:13 | ERD ---
ER Documentation Chief Complaint Chief Complaint swelling of face, and bilat hands and feet x 5 days HPI The patient is a 42-year-old female, presenting to the ER because of swelling of the face, bilateral hands, bilateral feet for the last 5 days, intermittently , worse in the evening. She denies similar symptoms previously, recently gave . She denies fever, cough, dyspnea, abdominal pain, vomiting, dysuria, diarrhea, leg pain. She does not smoke nor drink. She does not smoke nor drink Past medical history/past surgical history: None ROS All systems reviewed and are negative except as per history of present illness. Medications Home Meds Reported Medications Multivit/Min/Fol Ac/Iron/Pren* ( S*) 1 Tab Tab, 1 TAB PO DAILY, TAB 05/24/17 Allergies Allergies: Coded Allergies: Sulfa (Sulfonamide Antibiotics) (Verified Allergy, Intermediate, vaginal swelling , 07/13/17) PMhx/Soc Hx Alcohol Use: No Hx Substance Use: No Hx Tobacco Use: No Physical Exam Vitals Vital Signs Date Time Temp Pulse Resp B/P Pulse Ox O2 Delivery O2 Flow Rate FiO2 07/24/17 11:49 98.9 96 18 134/85 99 Physical Exam Const: No acute distress. Head: Atraumatic. Eyes: Normal Conjunctiva. ENT: Normal External Ears, Nose and Mouth.No facial edema Neck: Full range of motion. No meningismus. Resp: Clear to auscultation bilaterally. Cardio: Regular rate and rhythm. Abd: Soft, non distended, normal bowel sounds, non tender. Skin: No petechiae or rashes. Back: No midline or flank tenderness. Ext: Minimal ankle edema, no calf tenderness, no upper extremity edema Neur: Awake and alert. No focal deficit Psych: Normal Mood and Affect. Procedures/MDM MEDICAL MAKING DECISION: The patient is a 42-year-old female, presenting with acute peripheral edema, most likely due to recent and delivery. She is stable for outpatient follow-up The differential diagnoses considered include but are not limited to DVT, lymphedema, CHF, renal insufficiency, hepatic insufficiency Departure Diagnosis: Primary Impression: Mild peripheral edema Condition: Good Comments The patient's blood pressure was elevated (>120/80) but appears stable without evidence of hypertension emergency or urgency. The patient was counseled about the risks of hypertension and urged to pursue outpatient monitoring and therapy within a week with their primary care physician. I discussed the findings with the patient. I advised the patient to follow-up with the primary physician in about 1-2 days, sooner if needed and return if any concern. Disclaimer: Inadvertent spelling and grammatical errors are likely due to EHR/ dictation software use and do not reflect on the overall quality of patient care. Also, please note that the electronic time recorded on this note does not necessarily reflect the actual time of the patient encounter. KAREN YAO MD Jul 24, 2017 12:13
== END 2017-07-24 13:29 | disposition home or self-care (01) ==
LOC: E/R 11:44
DX: R60.0 Localized edema (principal)
CPT/HCPCS: 99282

== ENCOUNTER 2017-10-29 10:14 | Day surgery (SDC) | END 2017-10-30 09:21 | disposition home or self-care (01) ==

== ENCOUNTER 2017-12-17 05:29 | Day surgery (SDC) | END 2017-12-17 10:40 | disposition home or self-care (01) ==